=== PATIENT | female | born 1995 | race Caucasian/White ===

== ENCOUNTER 2019-07-18 19:10 | Emergency (ER) | payer BC ==
[~2019-07-18] VITALS: Ht 167.6 cm; Wt 64.9 kg
[2019-07-18 19:44] VITALS: BP_SYST 123
[2019-07-18] MEDS ORDERED: KETOROLAC TROMETHAMINE 30 MG VIAL IVP ONE (20:00)
[2019-07-18] MEDS ORDERED: NACL 0.9% 1,000 ML IV ONE (20:00)
[2019-07-18 21:20] VITALS: BP_SYST 113
== END 2019-07-18 21:20 | disposition home or self-care (01) ==
LOC: SED 19:10
DX: R07.89 Other chest pain (principal); R05 Cough; R03.0 Elevated blood-pressure reading, without diagnosis of hypertension
CPT/HCPCS: 81002; 81025; 93005; 96374; 99284; J1885; J7030